=== PATIENT | female | born 1930 | race Caucasian/White ===

== ENCOUNTER → 2016-10-23 | Outpatient (CLI) | payer OTHER ==
[2016-10-23 12:23] LABS: BASO % 0.8 %; BASO ABS # 0.04 K/uL (0-0.2); COMPLETE YES; EOS % 1.6 %; HEMATOCRIT 38.8 % (37-47); IG% 0.2 %; LYMPH % 25.3 %; LYMPH ABS # 1.29 K/uL (1.2-3.4); MEAN CELL VOLUME 91.1 fL (80-100); MEAN CORPUSCULAR HEMOGLOBIN 30.3 pg (25-34); MEAN CORPUSCULAR HGB CONC 33.2 g/dl (32-36); MEAN PLATELET VOLUME 10.3 fL (7.4-10.4); MONO % 7.9 %; NEUT % 64.2 %; PLATELET COUNT 387 K/uL (130-400); RED BLOOD COUNT 4.26 M/uL (4.2-5.4); WHITE BLOOD COUNT 5.09 K/uL (4.8-10.8)
[2016-10-23 12:35] LABS: ALT/SGPT 32 U/L (12-78); AST/SGOT 21 U/L (15-37); BLOOD UREA NITROGEN 11 mg/dl (7-18); BUN/CREATININE RATIO 13.2 (10-20); CALCIUM 8.8 mg/dl (8.5-10.1); CARBON DIOXIDE 27 mmol/L (21-32); CHLORIDE 100 mmol/L (98-107); CREATININE 0.84 mg/dl (0.60-1.20); GLUCOSE 163 mg/dl (70-99); SODIUM 137 mmol/L (136-145)
[2016-10-23 12:46] LABS: ALB/GLOB RATIO 1.2 (0.9-2); ALKALINE PHOSPHATASE 75 U/L (45-117); CHOLESTEROL 161 mg/dl (0-200); CHOLESTEROL/HDL RATIO 2.6; HDL CHOLESTEROL 63 mg/dl; LDL CHOLESTEROL CALCULATED 80 mg/dl; TRIGLYCERIDES 92 mg/dl (0-150); VERY LOW DENSITY LIPOPROT CALC 18 mg/dl
[2016-10-23 12:58] LABS: ESTIMATED AVERAGE GLUCOSE 151 mg/dl; HA1C FLAG Normal (Normal)
[2016-10-23 13:00] LABS: RATIO 10.7 mcg/mg (0-30.0)
== END | disposition home or self-care (01) ==
LOC: C.LABBFT 07:35
PROVIDERS: ATTEND Internal Medicine
DX: I10 Essential (primary) hypertension (principal); E78.00 Pure hypercholesterolemia, unspecified; E11.9 Type 2 diabetes mellitus without complications; M81.0 Age-related osteoporosis without current pathological fracture; D64.9 Anemia, unspecified

== ENCOUNTER → 2017-05-29 | Outpatient (CLI) | payer OTHER ==
[2017-05-29 12:21] LABS: MEAN CELL VOLUME 92.4 fL (80-100); MEAN CORPUSCULAR HEMOGLOBIN 29.6 pg (25-34); MEAN PLATELET VOLUME 10.3 fL (7.4-10.4); PLATELET COUNT 398 K/uL (130-400); RED BLOOD COUNT 4.33 M/uL (4.2-5.4); WHITE BLOOD COUNT 5.23 K/uL (4.8-10.8)
[2017-05-29 12:33] LABS: ALT/SGPT 30 U/L (12-78); AST/SGOT 18 U/L (15-37); BLOOD UREA NITROGEN 11 mg/dl (7-18); BUN/CREATININE RATIO 15.3 (10-20); CALCIUM 9.2 mg/dl (8.5-10.1); CARBON DIOXIDE 29 mmol/L (21-32); CHLORIDE 102 mmol/L (98-107); CREATININE 0.74 mg/dl (0.60-1.20); GLUCOSE 180 mg/dl (70-99); SODIUM 137 mmol/L (136-145)
[2017-05-29 12:44] LABS: ALB/GLOB RATIO 1.1 (0.9-2); ALKALINE PHOSPHATASE 64 U/L (45-117); CHOLESTEROL 233 mg/dl (0-200); CHOLESTEROL/HDL RATIO 3.9; HDL CHOLESTEROL 59 mg/dl; LDL CHOLESTEROL CALCULATED 146 mg/dl; TRIGLYCERIDES 140 mg/dl (0-150); VERY LOW DENSITY LIPOPROT CALC 28 mg/dl
[2017-05-29 12:53] LABS: ESTIMATED AVERAGE GLUCOSE 157 mg/dl; HA1C FLAG Normal (Normal)
== END | disposition home or self-care (01) ==
LOC: C.LABBFT 07:59
PROVIDERS: ATTEND Internal Medicine
DX: E11.9 Type 2 diabetes mellitus without complications (principal)

== ENCOUNTER → 2017-12-17 | Outpatient (CLI) | payer OTHER ==
[2017-12-17 12:41] LABS: HEMATOCRIT 32.7 % (37-47); HEMOGLOBIN 10.3 g/dL (12.0-16.0); MEAN CELL VOLUME 84.5 fL (80-100); MEAN CORPUSCULAR HEMOGLOBIN 26.6 pg (25-34); MEAN CORPUSCULAR HGB CONC 31.5 g/dl (32-36); MEAN PLATELET VOLUME 9.9 fL (7.4-10.4); PLATELET COUNT 434 K/uL (130-400); RED CELL DISTRIBUTION WIDTH CV 13.9 % (11.5-14.5); RED CELL DISTRIBUTION WIDTH SD 42.6 fL (36.4-46.3); WHITE BLOOD COUNT 7.25 K/uL (4.8-10.8)
[2017-12-17 12:42] LABS: HEMOGLOBIN A1C 8.4 % (4.5-5.6)
[2017-12-17 14:54] LABS: ALBUMIN 3.9 gm/dl (3.4-5.0); ALT/SGPT 25 U/L (12-78); AST/SGOT 21 U/L (15-37); BLOOD UREA NITROGEN 20 mg/dl (7-18); CALCIUM 9.1 mg/dl (8.5-10.1); CARBON DIOXIDE 25 mmol/L (21-32); CREATININE 0.92 mg/dl (0.60-1.20); GLUCOSE 225 mg/dl (70-99); POTASSIUM 3.9 mmol/L (3.5-5.1); SODIUM 135 mmol/L (136-145)
[2017-12-17 15:04] LABS: ALKALINE PHOSPHATASE 62 U/L (45-117); CHOLESTEROL 174 mg/dl (0-200); LDL CHOLESTEROL CALCULATED 83 mg/dl; TOTAL PROTEIN 7.5 gm/dl (6.4-8.2)
== END | disposition home or self-care (01) ==
LOC: C.LABBFT 07:44
PROVIDERS: ATTEND Internal Medicine
DX: E11.9 Type 2 diabetes mellitus without complications (principal)

== ENCOUNTER 2018-12-04 07:37 | Observation (INO) ==
--- NOTE | 2018-12-04 08:12 | Emergency Department Note ---
History of Present Illness General Chief complaint: Hip Pain Time Seen by Provider: 12/04/18 07:40 History of Present Illness Maximum Pain Intensity: 5 Patient is an 88-year-old female with past medical history significant for diabetes, hypertension and dyslipidemia who was brought to the emergency department by S ambulance for evaluation after she fell at home this morning. Incident occurred about an hour ago. History is obtained from EMS, who spoke with the patient's housemate, as well as the patient and her daughter. Patient tells me, that she believes that she slid off the couch while seated on it in the living room. She was helped up by her housemate. EMS report that she fell while walking down the hallway into the kitchen about an hour ago. It is unclear whether she struck her head, but there was no apparent loss of consciousness. Patient complains of some left hip pain, but then admits that this chronic in nature. Patient complained of some discomfort in the top of her head initially, then denied this. She denies any chest pain, palpitations, shortness of breath, abdominal pain, nausea, vomiting, urinary symptoms or stool changes. She does not believe that she took her morning medications nor had breakfast this morning. The patient's daughter presented to the emergency department, and reported that the housemate told her that the patient had fallen in the hallway. Patient's daughter does admit that there does appear to be some baseline forgetfulness/dementia, and she might be a little "worse this morning" than normal. Home Medications Home Medications Medication Instructions Recorded Confirmed Type glipizide 10 mg PO DAILY 12/04/18 12/04/18 History lisinopril-hydrochlorothiazide 1 tab PO DAILY 12/04/18 12/04/18 History metformin 850 mg PO BID 12/04/18 12/04/18 History simvastatin 80 mg PO DAILY 12/04/18 12/04/18 History Allergies Allergy/AdvReac Type Severity Reaction Status Date / Time chocolate flavor Allergy HEARING Verified 12/04/18 11:03 PROBLEMS Past Med/Surg History Medical History Dyslipidemia (Chronic) Hypertension (Chronic) Diabetes (Chronic) Social History Feels Safe at Home: Yes Smoking Status: Former smoker Review of Systems A total of 10 systems reviewed and were otherwise negative Physical Exam Vital Signs Vital Signs - 24 hr 12/04/18 07:43 12/04/18 08:59 12/04/18 09:59 Temperature 36.8 C Temperature Source Oral Sepsis Recent Fever Within 48 Hours No Sepsis New/Unexplained Change in Mental Status No Sepsis Action Taken by Nursing No Action Required Pulse Rate - Lying Pulse Rate [Left Finger] 98 H 100 H 104 H Respiratory Rate 18 18 18 Respiratory Effort / Characteristics Non-Labored Spontaneous Non-Labored Spontaneous Non-Labored Spontaneous Respiratory Depth Normal Normal Normal Respiratory Pattern Regular Regular Regular Blood Pressure - Lying Blood Pressure [Left Arm] 186/107 H 179/102 H 150/101 H Blood Pressure Mean [Left Arm] 133 127 117 Blood Pressure Position [Left Arm] Lying Lying Lying Pulse Oximetry 97 91 94 Oxygen Delivery Method Room Air Room Air Room Air 12/04/18 11:24 12/04/18 13:21 12/04/18 13:34 Temperature Temperature Source Sepsis Recent Fever Within 48 Hours Sepsis New/Unexplained Change in Mental Status Sepsis Action Taken by Nursing Pulse Rate - Lying 90 Pulse Rate [Left Finger] 94 H 107 H Respiratory Rate 19 23 Respiratory Effort / Characteristics Respiratory Depth Respiratory Pattern Blood Pressure - Lying 164/86 H Blood Pressure [Left Arm] 169/92 H 155/108 H Blood Pressure Mean [Left Arm] 117 123 Blood Pressure Position [Left Arm] Pulse Oximetry 94 95 93 Oxygen Delivery Method Room Air Room Air 12/04/18 15:18 Temperature Temperature Source Sepsis Recent Fever Within 48 Hours Sepsis New/Unexplained Change in Mental Status Sepsis Action Taken by Nursing Pulse Rate - Lying Pulse Rate [Left Finger] 96 H Respiratory Rate 20 Respiratory Effort / Characteristics Respiratory Depth Respiratory Pattern Blood Pressure - Lying Blood Pressure [Left Arm] 109/72 Blood Pressure Mean [Left Arm] 84 Blood Pressure Position [Left Arm] Pulse Oximetry 93 Oxygen Delivery Method Room Air GENERAL: Patient is a pleasant, well-appearing 88-year-old female who is awake alert no acute distress. HEENT: Head - normocephalic and atraumatic. Pupils are equal, round, and reactive to light. Extraocular eye muscles are intact and sclera are anicteric. Ears - bilaterally patent canals with no evidence of hemotympanum. Nose - moist nasal mucosa without evidence of trauma or discharge. Mouth - moist buccal mucosa with no trauma to the teeth or signs of malocclusion. Neck: The neck is supple and there is no pain to palpation over the posterior cervical spine and no obvious step-offs or deformities. There is no JVD or tracheal deviation. Chest: There are no signs of deformities, contusions or abrasions to the chest wall. There is no obvious crepitus or paradoxical chest rise. Heart: Regular rate and rhythm. No murmur appreciated. Lungs: Breath sounds equal and clear to auscultation without wheezes, rales, or rhonchi heard. Abdomen: Bowel sounds are present. Abdomen is soft, nontender nondistended. There is no sign of trauma such as contusions, abrasions or penetrations. There are no palpable pulsatile masses. There is no guarding, rigidity, or rebound noted. Extremities: Leg lengths are symmetrical. The patient complains of some discomfort to palpation over the left groin and left greater trochanter, but logroll is negative. She does have discomfort with hip flexion and internal and external rotation. Bilateral lower extremities are neurovascularly intact. No other obvious trauma, deformities, contusions, or edema. There are easily palpable peripheral pulses. Neuro: The patient is awake and alert and easily able to follow commands. Muscle strength is 5 out of 5 in all 4 extremities. Otherwise, neuro exam is unremarkable. Back: The entire thoracic, lumbar, and sacral spine were palpated. No discomfort over the thoracic spine and lumbar spine. There are no obvious step- offs or deformities noted. There are no obvious signs of trauma such as contusions abrasions penetrations noted to the back. Course The patient was seen and assessed as above. Old records were reviewed. History was initially unclear, due to the patient's suspected underlying dementia. I was able to speak with both her daughter and her housemate, and he confirmed that he came out into the living room earlier this morning and the patient told him that she had fallen in the hallway. She had gotten herself up and walked into the living room and sat down on the couch after she had fallen. The fall was unwitnessed. The patient is complaining of some head discomfort , and some left hip discomfort. IV lock was initiated and laboratory studies were collected. EKG was performed and was as noted below without evidence for ectopy or acute ischemic changes.. Head CT and left hip and pelvic x-rays were obtained. The patient's laboratory studies revealed a white count of 17,800 of unclear significance. H&H is normal. There are no electrolyte abnormalities noted. BUN and creatinine 12 and 0.82. Glucose was 225. Urine sample is negative for infection. Troponin x1 is negative for cardiac ischemia. Head CT was negative for acute intracranial bleed, mass or trauma. Pelvic x- rays noted minimally displaced fractures of the superior and inferior left pubic rami, possible extension of the left superior pubic ramus fracture towards the left acetabulum. Pelvic CT was recommended. Pelvic CT was performed, which again redemonstrated the non-distracted left superior and inferior pubic ring fractures. The superior pubic ring fracture extends to the anterior wall of the acetabulum. Trace intrapelvic extraperitoneal hemorrhage on the left as well as intramuscular hemorrhage noted in the left obturator and left abductor musculature. Patient had some increased discomfort after her diagnostic imaging studies and was medicated with Zofran 4 mg and morphine 2 mg IV. All laboratory and diagnostic imaging studies were reviewed with attending physician who also independently evaluated the patient. The patient and her daughter were made aware of the results of her ED workup. The patient did note some increased left hip pain. She was given Toradol 10 mg IV. I did speak with Yury Williamson PA-C, with [facility]. He discussed the patient with Dr. Betancourt. Patient's fractures are nonsurgical, and they recommended a partial weightbearing gait with a walker, and follow-up in the office in 2 weeks. Pain management as needed. This information was related to the patient's family. Patient was reviewed with the emergency department case management, Kamila Shane, to help facilitate SNF/ Rehab placement. The patient was ordered a meal tray. Physical and Occupational Therapy consults were ordered. Referral was made to [facility]. Please refer to criminal intelligence analyst notes for further information. Unfortunately, we were unable to obtain insurance authorization. Admission/ observation at our facility pending insurance authorization for significant was discussed with the patient and her daughter and they were in agreement. I did speak with Dr. Tay with [facility], they will see the patient. Administered Medications Discontinued Medications Ketorolac Tromethamine (Toradol) 10 mg PO NOW STA Stop: 12/04/18 11:29 Last Admin: 12/04/18 11:39 Dose: 10 mg Morphine Sulfate (Morphine Sulfate) 2 mg IV NOW STA Stop: 12/04/18 09:44 Last Admin: 12/04/18 09:59 Dose: 2 mg Ondansetron HCl (Zofran) 4 mg IV NOW STA Stop: 12/04/18 09:44 Last Admin: 12/04/18 09:59 Dose: 4 mg Medical Decision Making Differential Diagnosis Differential diagnoses entertained included hip versus femur fracture/ dislocation, pelvic fracture, lumbar spine injury, rib fracture, mechanical fall , acute coronary syndrome, orthostasis, dehydration, electrolyte abnormalities, anemia, hypoglycemia, syncope, seizure, arrhythmia, among others. Medical Records Attestation: I reviewed the patient's medical records. Home Medications Current Medication List: was personally reviewed by me Laboratory Data Attestation: I reviewed the patient's lab results. Result diagrams: 12/04/18 08:35 12/04/18 08:35 Lab Results 12/04/18 12/04/18 12/04/18 Range/Units 08:35 08:35 08:35 WBC 17.87 H (4.8-10.8) K/uL RBC 4.16 L (4.2-5.4) M/uL Hgb 13.0 (12.0-16.0) g/dL Hct 38.6 (37-47) % MCV 92.8 (80-100) fL MCH 31.3 (25-34) pg MCHC 33.7 (32-36) g/dL RDW Std Deviation 41.6 (36.4-46.3) fL RDW Coeff of Elizabeth 12.3 (11.5-14.5) % Plt Count 291 (130-400) K/uL MPV 9.9 (7.4-10.4) fL Sodium 137 (136-145) mmol/L Potassium 3.5 (3.5-5.1) mmol/L Chloride 102 (98-107) mmol/L Carbon Dioxide 28 (21-32) mmol/L Anion Gap 7.0 (3-11) BUN 21 H (7-18) mg/dl Creatinine 0.82 (0.6-1.2) mg/dl Est Cr Clr Drug Dosing 40.0 ml/min Est GFR ( Amer) 74.6 Est GFR (Non-Af Amer) 64.3 BUN/Creatinine Ratio 24.9 H (10-20) Glucose 225 H (70-99) mg/dl Calcium 8.9 (8.5-10.1) mg/dl Troponin I < 0.015 (0-0.045) ng/ml Urine Color Urine Appearance (Clear) Urine pH (4.5-7.5) Ur Specific [place] (1.000-1.030) Urine Protein (Negative) Urine Glucose (UA) (Negative) Urine Ketones (Negative) Urine Blood (Negative) Urine Nitrite (Negative) Urine Bilirubin (Negative) Urine Urobilinogen (Negative) Ur Leukocyte Esterase (Negative) 12/04/18 Range/Units 09:50 WBC (4.8-10.8) K/uL RBC (4.2-5.4) M/uL Hgb (12.0-16.0) g/dL Hct (37-47) % MCV (80-100) fL MCH (25-34) pg MCHC (32-36) g/dL RDW Std Deviation (36.4-46.3) fL RDW Coeff of Elizabeth (11.5-14.5) % Plt Count (130-400) K/uL MPV (7.4-10.4) fL Sodium (136-145) mmol/L Potassium (3.5-5.1) mmol/L Chloride (98-107) mmol/L Carbon Dioxide (21-32) mmol/L Anion Gap (3-11) BUN (7-18) mg/dl Creatinine (0.6-1.2) mg/dl Est Cr Clr Drug Dosing ml/min Est GFR ( Amer) Est GFR (Non-Af Amer) BUN/Creatinine Ratio (10-20) Glucose (70-99) mg/dl Calcium (8.5-10.1) mg/dl Troponin I (0-0.045) ng/ml Urine Color Yellow Urine Appearance Clear (Clear) Urine pH 7.0 (4.5-7.5) Ur Specific [place] 1.017 (1.000-1.030) Urine Protein Negative (Negative) Urine Glucose (UA) 1+ H (Negative) Urine Ketones 1+ H (Negative) Urine Blood Negative (Negative) Urine Nitrite Negative (Negative) Urine Bilirubin Negative (Negative) Urine Urobilinogen Negative (Negative) Ur Leukocyte Esterase Negative (Negative) Imaging Data Attestation: I personally reviewed and interpreted this imaging study as follows : Radiologist's Impression: CT head/brain wo con CLINICAL HISTORY: 88 years-old Female with FALL, EVAL TRAUMA. Acute posttraumatic head injury TECHNIQUE: Multiple axial CT images of the head were obtained without contrast. A dose lowering technique was utilized adhering to the principles of ALARA. CT DOSE: 537.48 mGy.cm COMPARISON: None. FINDINGS: No acute intracranial hemorrhage, midline shift, intracranial mass, hydrocephalus, territorial ischemia or abnormal extra-axial collection. Age- related involutional changes with mild ex vacuo ventriculomegaly. Mild degree of ill-defined white matter hypodensities are suggestive of chronic microvascular ischemic changes senescent calcifications of the lentiform nuclei. 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 The calvarium is intact. Prior bilateral cataract repair. Soft tissues are unremarkable. The paranasal sinuses, mastoid air cells, and middle ear cavities are clear. IMPRESSION: No acute intracranial abnormality or calvarial fracture. XR hip LT 2-3V w pelvis CLINICAL HISTORY: 88 years-old Female presenting with LEFT HIP PAIN, fall a few days ago. TECHNIQUE: Single frontal view of the pelvis and frontal and frog-leg lateral views of the left hip were obtained. COMPARISON: None. FINDINGS: Minimally displaced fractures of the superior and inferior left pubic rami. The superior left pubic ramus fracture extends toward the acetabulum. Left femoral neck intact. Sacral iliac joints, pubic symphysis, and hip joints congruent. Underlying osteopenia suggested. Arcuate lines of the sacrum grossly intact. Bony pelvis otherwise intact. Grossly intact right femoral neck. No advanced degenerative change. Nonobstructive bowel gas pattern. IMPRESSION: Minimally displaced fractures of the superior and inferior left pubic rami. Apparent extension of the left superior pubic ramus fracture towards left acetabulum; left acetabular fracture not excluded though considered less likely. Consider pelvic CT for further evaluation. CT SCAN OF THE PELVIS WITHOUT IV CONTRAST CLINICAL HISTORY: Pelvic fractures. COMPARISON STUDY: Pelvic x-ray dated 12/04/2018. TECHNIQUE: CT scan of the bony pelvis is performed from the pelvic inlet to the proximal femora. Images are reviewed in the axial, sagittal, and coronal planes. IV contrast was not administered for this examination. A dose lowering technique was utilized adhering to the principles of ALARA. CT DOSE: 636.67 mGy.cm FINDINGS: The skeletal structures are osteopenic. There are acute nondistracted fractures of the left superior and inferior pubic ring. Fracture extends through the anterior wall of the left acetabulum. No additional fracture is identified. The proximal femora are intact with no evidence of osteonecrosis. No lytic or blastic lesion is seen. 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 Intramuscular hemorrhage is noted within the left obturator internus muscle as well as left adductor muscles. There is trace intrapelvic extraperitoneal hemorrhage on the left. The bladder is decompressed and grossly unremarkable. The uterus and adnexa are normal as visualized. There is no pelvic sidewall or inguinal lymphadenopathy. The imaged bowel loops are normal in caliber. A normal appendix is identified. No free fluid is seen in the cul-de-sac. There is calcification of the origin of the hamstrings tendons. IMPRESSION: 1. There are nondistracted left superior and inferior pubic ring fractures. 2. The superior pubic ring fracture extends to the anterior wall of the left acetabulum. 3. No additional fracture is seen. 4. Intramuscular hemorrhage is noted within the left obturator internus and left adductor musculature. 5. There is trace intrapelvic extraperitoneal hemorrhage on the left. 6. Additional findings as above. ECG Data Attestation: I personally reviewed and interpreted this ECG as follows: Indication: other (fall/trauma) Rate (beats per minute): 99 Rhythm: normal sinus Findings: no acute ischemic change and no ectopy Comparison ECG Date: no prior available Blood Pressure Blood Pressure Findings: Elevated blood pressure Blood Pressure Disposition: elevated BP felt to be situational MDM Narrative See ED Course. Impression & Plan Fracture of left pelvis, Ambulatory dysfunction Discharge Plan Visit Data Chief Complaint: Hip Pain ED Provider: Ivan Boles ED Midlevel Provider: John Peterson Discharge Problem: Fracture of left pelvis, Ambulatory dysfunction Patient Disposition: Being Evaluated by Hospitalist Forms Stand Alone Forms: My [facility] Prescriptions Prescriptions: No Action lisinopril-hydrochlorothiazide 20-12.5 mg tablet 1 tab PO DAILY RF: 0 glipizide 10 mg tablet 10 mg PO DAILY RF: 0 metformin 850 mg tablet 850 mg PO BID RF: 0 simvastatin 80 mg tablet 80 mg PO DAILY RF: 0 Referrals Referrals: Yasir Vo III, MD [Primary Care Provider] - Leon Betancourt MD [Surgeon] -
[2018-12-04 08:51] LABS: Hematocrit (blood only) 38.6 % (37-47); Mean Corpuscular Hgb Conc 33.7 g/dL (32-36); Mean Corpuscular Volume 92.8 fL (80-100); Mean Platelet Volume 9.9 fL (7.4-10.4); Platelet Count 291 K/uL (130-400); RDW Coefficient of Variation 12.3 % (11.5-14.5); RDW Standard Deviation 41.6 fL (36.4-46.3); Red Blood Count 4.16 M/uL (4.2-5.4); White Blood Count 17.87 K/uL (4.8-10.8)
--- NOTE | 2018-12-04 08:57 | CT Scan Report ---
CT head/brain wo con CLINICAL HISTORY: 88 years-old Female with FALL, EVAL TRAUMA. Acute posttraumatic head injury TECHNIQUE: Multiple axial CT images of the head were obtained without contrast. A dose lowering tech nique was utilized adhering to the principles of ALARA. CT DOSE: 537.48 mGy.cm COMPARISON: None. FINDINGS: No acute intracranial hemorrhage, midline shift, intracranial mass, hydrocephalus, territorial ischem ia or abnormal extra-axial collection. Age-related involutional changes with mild ex vacuo ventriculo megaly. Mild degree of ill-defined white matter hypodensities are suggestive of chronic microvascular ischemic changes senescent calcifications of the lentiform nuclei. Remote appearing lacunar infarcti on of the left lentiform nucleus. The calvarium is intact. Prior bilateral cataract repair. Soft tissues are unremarkable. The paranasa l sinuses, mastoid air cells, and middle ear cavities are clear. IMPRESSION: No acute intracranial abnormality or calvarial fracture. The above report was generated using voice recognition software. It may contain grammatical, syntax o r spelling errors. Electronically signed by: Clyde Valenzuela M.D. 12/04/2018 8:55 AM
[2018-12-04 08:58] LABS: BUN Creatinine Ratio 24.9 (10-20); Calcium 8.9 mg/dl (8.5-10.1); Est GFR (African American) 74.6; Est GFR (Non-African American) 64.3; Potassium 3.5 mmol/L (3.5-5.1)
--- NOTE | 2018-12-04 09:26 | XRay Report ---
XR hip LT 2-3V w pelvis CLINICAL HISTORY: 88 years-old Female presenting with LEFT HIP PAIN, fall a few days ago. TECHNIQUE: Single frontal view of the pelvis and frontal and frog-leg lateral views of the left hip w ere obtained. COMPARISON: None. FINDINGS: Minimally displaced fractures of the superior and inferior left pubic rami. The superior left pubic r amus fracture extends toward the acetabulum. Left femoral neck intact. Sacral iliac joints, pubic sym physis, and hip joints congruent. Underlying osteopenia suggested. Arcuate lines of the sacrum grossl y intact. Bony pelvis otherwise intact. Grossly intact right femoral neck. No advanced degenerative c hange. Nonobstructive bowel gas pattern. IMPRESSION: Minimally displaced fractures of the superior and inferior left pubic rami. Apparent extension of the left superior pubic ramus fracture towards left acetabulum; left acetabular fracture not excluded th ough considered less likely. Consider pelvic CT for further evaluation. Electronically signed by: Adiel Lopez M.D. 12/04/2018 9:25 AM
--- NOTE | 2018-12-04 09:39 | Emergency Department Note ---
ED Visit Note I have seen and examined this patient with Tulio Greenberg and generally agree with the treatment plan as discussed. .
[2018-12-04] MEDS ORDERED: ONDANSETRON INJ 2 MG/ML 2 ML VIAL IV STA (09:43)
[2018-12-04] MEDS ORDERED: MoRPHine SULFATE 2 MG/ML CARP IV STA (09:43)
[2018-12-04 10:30] LABS: Appearance Urine Clear (Clear); Bilirubin Urine Negative (Negative); Blood Urine Negative (Negative); Color Urine Yellow; Glucose Urine UA 1+ (Negative); Ketones Urine 1+ (Negative); Leukocyte Esterase Urine Negative (Negative); Nitrite Urine Negative (Negative); Protein Urine Negative (Negative); Specific Gravity Urine 1.017 (1.000-1.030); Urobilinogen Urine Negative (Negative)
--- NOTE | 2018-12-04 10:34 | CT Scan Report ---
CT SCAN OF THE PELVIS WITHOUT IV CONTRAST CLINICAL HISTORY: Pelvic fractures. COMPARISON STUDY: Pelvic x-ray dated 12/04/2018. TECHNIQUE: CT scan of the bony pelvis is performed from the pelvic inlet to the proximal femora. Christiana ges are reviewed in the axial, sagittal, and coronal planes. IV contrast was not administered for thi s examination. A dose lowering technique was utilized adhering to the principles of ALARA. CT DOSE: 636.67 mGy.cm FINDINGS: The skeletal structures are osteopenic. There are acute nondistracted fractures of the left superior and inferior pubic ring. Fracture extends through the anterior wall of the left acetabulum. No additional fracture is identified. The proximal femora are intact with no evidence of osteonecros is. No lytic or blastic lesion is seen. There are bilateral pars defects at L5 with 10 mm of anteroli sthesis at L5-S1. Intramuscular hemorrhage is noted within the left obturator internus muscle as well as left adductor muscles. There is trace intrapelvic extraperitoneal hemorrhage on the left. The lan dder is decompressed and grossly unremarkable. The uterus and adnexa are normal as visualized. There is no pelvic sidewall or inguinal lymphadenopathy. The imaged bowel loops are normal in caliber. A no rmal appendix is identified. No free fluid is seen in the cul-de-sac. There is calcification of the o rigin of the hamstrings tendons. IMPRESSION: 1. There are nondistracted left superior and inferior pubic ring fractures. 2. The superior pubic ring fracture extends to the anterior wall of the left acetabulum. 3. No additional fracture is seen. 4. Intramuscular hemorrhage is noted within the left obturator internus and left adductor musculature . 5. There is trace intrapelvic extraperitoneal hemorrhage on the left. 6. Additional findings as above. Electronically signed by: Etienne Pimentel M.D. 12/04/2018 10:32 AM
[2018-12-04] MEDS ORDERED: KETOROLAC TROMETHAMINE 10 MG TABLET PO STA (11:28)
--- NOTE | 2018-12-04 17:25 | History & Physical Report ---
Date of Service December 04, 2018 Assessment & Plan (1) Fracture of left pelvis: left superior and inferior ramus fracture, non displaced non surgical per orthopedics recommend partial weight bearing with rolling walker, rehab follow up with Dr. Betancourt in 2 weeks Toradol and Ultram ordered for pain controle PT/OT ordered should be able to go to [facility] tomorrow pending insurance authorization (2) Hypertension: BP low normal currently continue Lisinopril HCTZ tomorrow AM with hold parameters (3) Diabetes: hold Metformin and Glipizide while inpatient Novolog diabetic diet monitor for hypoglycemia (4) Dyslipidemia: continue Zocor (5) DVT prophylaxis: Heparin SC History of Present Illness Chief Complaint: I fell Primary Care Provider: Yasir Vo MD 88 yo female with history of DM and HTN, presents to the ED after falling in her hallway at home. She only fell once and she experienced pain in her left hip. She denied striking her head and there was no loss of consciousness. She was not able to walk due to the pain in her hip so she was brought to the ED. She had been in her usual state of good health prior to the fall. She has some mild memory loss but overall she is independent, lives with a housemate and daughter checks on her. No recent infections. She has been eating and drinking well. Takes her medications as prescribed. In the ED her labs showed WBC of 17k but Hb normal. Cr stable at 0.8 and BUN 21. Glucose was 225. CT pelvis showed non-displaced inferior and superior pubic ramus fractures. The case was discussed with orthopedics and they said that this was non-surgical , recommended ambulating with walker with partial weight bearing, follow up in [address] patient at [facility] but no decision given by insurance so will now observe patient over night. Allergies Allergy/AdvReac Type Severity Reaction Status Date / Time chocolate flavor Allergy HEARING Verified 12/04/18 11:03 PROBLEMS Home Medications Home Medications Medication Instructions Recorded Confirmed Type glipizide 10 mg PO DAILY 12/04/18 12/04/18 History lisinopril-hydrochlorothiazide 1 tab PO DAILY 12/04/18 12/04/18 History metformin 850 mg PO BID 12/04/18 12/04/18 History simvastatin 80 mg PO DAILY 12/04/18 12/04/18 History Past Med/Surg History Medical History Dyslipidemia (Chronic) Hypertension (Chronic) Diabetes (Chronic) No significant past surgical history Family History Other No significant family history Social History Feels Safe at Home: Yes Smoking Status: Former smoker Review of Systems All systems reviewed & are unremarkable except as noted in HPI & below Musculoskeletal: + joint pain (left hip hurts with movement) Neurologic: + confusion (intermittently) Physical Exam 2 Vital Signs (Past 24 Hours): Last Vital Signs Temp 36.8 C 12/04/18 07:43 Pulse 95 H 12/04/18 15:20 Resp 20 12/04/18 15:18 BP 90/57 L 12/04/18 17:01 Pulse Ox 87 L 12/04/18 17:01 Constitutional: WD/WN, vitals as above + thin Eyes: PERRL, conjunctivae normal, anicteric sclerae ENMT: external ear and nose normal, oropharynx normal Neck: trachea midline, no thyromegaly Respiratory: normal respiratory effort, lungs clear to auscultation Cardiovascular: RRR, no murmur, no edema Gastrointestinal (Abdomen): normal bowel sounds, soft, nontender, no hepatosplenomegaly Musculoskeletal: no cyanosis or clubbing, extremities motor strength 5/5 Extremities: extremities normal to inspection and + limited ROM of extremities ( pain with movement of left hip) Skin: no rashes, warm and dry Neurologic: patellar DTR's 2+ bilat, sensation intact and PERRL, EOMI, accommodation nl, no face palsy, no dysarthria Psychiatric: A+Ox3, euthymic affect Lymphatic: no cervical or axillary lymphadenopathy Results & Data Laboratory Results Laboratory Results - last 24 hr 12/04/18 12/04/18 12/04/18 08:35 08:35 08:35 WBC 17.87 H RBC 4.16 L Hgb 13.0 Hct 38.6 MCV 92.8 MCH 31.3 MCHC 33.7 RDW Std Deviation 41.6 RDW Coeff of Elizabeth 12.3 Plt Count 291 MPV 9.9 Sodium 137 Potassium 3.5 Chloride 102 Carbon Dioxide 28 Anion Gap 7.0 BUN 21 H Creatinine 0.82 Est Cr Clr Drug Dosing 40.0 Est GFR ( Amer) 74.6 Est GFR (Non-Af Amer) 64.3 BUN/Creatinine Ratio 24.9 H Glucose 225 H Calcium 8.9 Troponin I < 0.015 Urine Color Urine Appearance Urine pH Ur Specific [place] Urine Protein Urine Glucose (UA) Urine Ketones Urine Blood Urine Nitrite Urine Bilirubin Urine Urobilinogen Ur Leukocyte Esterase 12/04/18 09:50 WBC RBC Hgb Hct MCV MCH MCHC RDW Std Deviation RDW Coeff of Elizabeth Plt Count MPV Sodium Potassium Chloride Carbon Dioxide Anion Gap BUN Creatinine Est Cr Clr Drug Dosing Est GFR ( Amer) Est GFR (Non-Af Amer) BUN/Creatinine Ratio Glucose Calcium Troponin I Urine Color Yellow Urine Appearance Clear Urine pH 7.0 Ur Specific [place] 1.017 Urine Protein Negative Urine Glucose (UA) 1+ H Urine Ketones 1+ H Urine Blood Negative Urine Nitrite Negative Urine Bilirubin Negative Urine Urobilinogen Negative Ur Leukocyte Esterase Negative Diagnostic Findings CT SCAN OF THE PELVIS WITHOUT IV CONTRAST CLINICAL HISTORY: Pelvic fractures. COMPARISON STUDY: Pelvic x-ray dated 12/04/2018. TECHNIQUE: CT scan of the bony pelvis is performed from the pelvic inlet to the proximal femora. Images are reviewed in the axial, sagittal, and coronal planes. IV contrast was not administered for this examination. A dose lowering technique was utilized adhering to the principles of ALARA. CT DOSE: 636.67 mGy.cm FINDINGS: The skeletal structures are osteopenic. There are acute nondistracted fractures of the left superior and inferior pubic ring. Fracture extends through the anterior wall of the left acetabulum. No additional fracture is identified. The proximal femora are intact with no evidence of osteonecrosis. No lytic or blastic lesion is seen. 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 Intramuscular hemorrhage is noted within the left obturator internus muscle as well as left adductor muscles. There is trace intrapelvic extraperitoneal hemorrhage on the left. The bladder is decompressed and grossly unremarkable. The uterus and adnexa are normal as visualized. There is no pelvic sidewall or inguinal lymphadenopathy. The imaged bowel loops are normal in caliber. A normal appendix is identified. No free fluid is seen in the cul-de-sac. There is calcification of the origin of the hamstrings tendons. IMPRESSION: 1. There are nondistracted left superior and inferior pubic ring fractures. 2. The superior pubic ring fracture extends to the anterior wall of the left acetabulum. 3. No additional fracture is seen. 4. Intramuscular hemorrhage is noted within the left obturator internus and left adductor musculature. 5. There is trace intrapelvic extraperitoneal hemorrhage on the left. 6. Additional findings as above. Code Status & VTE Plan Code Status full code VTE Prophylaxis Plan VTE Prophylaxis will be ordered: Yes _ (1) Fracture of left pelvis Encounter type: initial encounter Fracture alignment: nondisplaced Fracture healing: Fracture morphology: Fracture type: closed Pelvic bone location: pubis Sublocation of acetabulum: Sublocation of pubis: Qualified Code(s): S32.502A - Unspecified fracture of left pubis, initial encounter for closed fracture
[2018-12-04] MEDS ORDERED: TRAMADOL HCL 50 MG TABLET PO PRN (18:39)
[2018-12-04] MEDS ORDERED: ONDANSETRON INJ 2 MG/ML 2 ML VIAL IV PRN (18:39)
[2018-12-04] MEDS ORDERED: KETOROLAC TROMETHAMINE 15 MG/ML VIAL IV PRN (18:39)
[2018-12-04] MEDS ORDERED: GLUCOSE 10 TABS/TUBE PO PRN (19:01)
[2018-12-04] MEDS ORDERED: DEXTROSE 50% 50 ML SYRINGE IV PRN (19:01)
[2018-12-04] MEDS ORDERED: GLUCOSE 40% GEL 15 GM TUBE PO PRN (19:01)
[2018-12-04] MEDS ORDERED: GLUCAGON FOR INJ 1 MG VIAL IM PRN (19:01)
[2018-12-04] MEDS ORDERED: CARBOHYDRATES FOR HYPOGLYCEMIA PO PRN (19:01)
[2018-12-04 19:37] LABS: INR 1.1 (0.9-1.1); Partial Thromboplastin Ratio 0.9; Partial Thromboplastin Time 24.1 Seconds (21.0-31.0); Prothrombin Time 10.9 Seconds (9.0-12.0)
[2018-12-04] MEDS: INSULIN ASPART 100 UNITS/ML 3 ML PEN SC SCH (21:24)
[2018-12-04] MEDS: HEPARIN SOD 5,000 UNIT/0.5 ML VIAL SQ SCH (21:24)
[2018-12-05] MEDS: ACETAMINOPHEN 325 MG TAB PO PRN ×3 (03:52→15:35)
[2018-12-05] MEDS: HEPARIN SOD 5,000 UNIT/0.5 ML VIAL SQ SCH ×2 (05:15→14:09)
[2018-12-05 06:33] LABS: Basophils # (auto) 0.04 K/uL (0-0.2); Basophils % (auto) 0.5 %; Eosinophils # (auto) 0.11 K/uL (0-0.5); Eosinophils % (auto) 1.5 %; Hematocrit (blood only) 36.9 % (37-47); Hemoglobin 12.4 g/dL (12.0-16.0); Immature Granulocytes # (auto) 0.02 K/uL (0.00-0.02); Immature Granulocytes % (auto) 0.3 %; Lymphocytes # (auto) 1.01 K/uL (1.2-3.4); Lymphocytes % (auto) 13.7 %; Mean Corpuscular Hgb Conc 33.6 g/dL (32-36); Mean Corpuscular Volume 93.2 fL (80-100); Mean Platelet Volume 9.8 fL (7.4-10.4); Monocytes # (auto) 0.83 K/uL (0.11-0.59); Monocytes % (auto) 11.3 %; Neutrophils # (auto) 5.36 K/uL (1.4-6.5); Neutrophils % (auto) 72.7 %; Platelet Count 242 K/uL (130-400); RDW Coefficient of Variation 12.6 % (11.5-14.5); RDW Standard Deviation 43.2 fL (36.4-46.3); Red Blood Count 3.96 M/uL (4.2-5.4); White Blood Count 7.37 K/uL (4.8-10.8)
[2018-12-05 07:05] LABS: Calcium 8.4 mg/dl (8.5-10.1); Est GFR (African American) 73.5; Est GFR (Non-African American) 63.4; Potassium 3.7 mmol/L (3.5-5.1)
[2018-12-05] MEDS ORDERED: SIMVASTATIN 80 MG TAB PO SCH (09:00)
[2018-12-05] MEDS ORDERED: LISINOPRIL/HCTZ 20/12.5MG 1 TAB TAB PO SCH (09:00)
[2018-12-05] MEDS: INSULIN ASPART 100 UNITS/ML 3 ML PEN SC SCH ×3 (09:10→16:48)
--- NOTE | 2018-12-10 05:36 | Discharge Summary ---
Date of Service date of admission - 12/04/18 date of discharge - 12/05/18 Admission HPI Per Admitting Provider 88 yo female with history of T2DM and HTN who presented to the ED after falling in her hallway at home. She only fell once and she experienced pain in her left hip. She denied striking her head and there was no loss of consciousness. She was not able to walk due to the pain in her hip so she was brought to the ED. She had been in her usual state of good health prior to the fall. She has had some mild memory loss but overall she is independent, lives with a housemate and daughter checks on her regularly. No recent infections. She has been eating and drinking well. Takes her medications as prescribed. In the ED her labs showed WBC of 17k but hemoglobin was normal. Cr stable at 0.8 and BUN 21. Glucose was 225. CT pelvis showed non-displaced inferior and superior pubic ramus fractures. The case was discussed with orthopedics and they said that this was non-surgical , recommended ambulating with walker with partial weight bearing, follow up in [address] patient at [facility] in the ER but no decision given by insurance so admitted for observation and pain control. Principal Diagnosis pelvic fractures s/p fall Discharge Exam Constitutional well developed and well nourished; no acute distress ENMT external ear and nose normal, oropharynx normal Respiratory normal respiratory effort, lungs clear to auscultation Cardiovascular RRR, no murmur, no edema Heart Sounds: normal S1 and normal S2 Vessels: posterior tibial pulses present and dorsalis pedis pulses present; no JVD Gastrointestinal (Abdomen) normal bowel sounds, soft, nontender, no hepatosplenomegaly Musculoskeletal left hip tenderness/pain (mainly groin pain) with passive flexion/extension/ rotation Psychiatric Orientation: alert, oriented to person and oriented to place Discharge Data Allergies Allergy/AdvReac Type Severity Reaction Status Date / Time chocolate flavor Allergy HEARING Verified 12/04/18 11:03 PROBLEMS Consultations PT, OT Ordered Studies 1. pelvic CT: IMPRESSION: 1. There are nondistracted left superior and inferior pubic ring fractures. 2. The superior pubic ring fracture extends to the anterior wall of the left acetabulum. 3. No additional fracture is seen. 4. Intramuscular hemorrhage is noted within the left obturator internus and left adductor musculature. 5. There is trace intrapelvic extraperitoneal hemorrhage on the left. 2. head CT: FINDINGS: No acute intracranial hemorrhage, midline shift, intracranial mass, hydrocephalus, territorial ischemia or abnormal extra-axial collection. Age- related involutional changes with mild ex vacuo ventriculomegaly. Mild degree of ill-defined white matter hypodensities are suggestive of chronic microvascular ischemic changes senescent calcifications of the lentiform nuclei. 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 The calvarium is intact. Prior bilateral cataract repair. Soft tissues are unremarkable. The paranasal sinuses, mastoid air cells, and middle ear cavities are clear. Hospital Course (1) Fracture of left pelvis: left superior and inferior ramus fractures non displaced. non surgical management per orthopedics. recommend partial weight bearing with rolling walker along with rehab. follow up with Dr. Betancourt in 2 weeks post-discharge at [facility]. Ultram prn pain. Recommend DEXA scan as outpatient to exclude osteoporosis. Vitamin D level also recommended. (2) Hypertension: Controlled during the stay. She will continue her usual home medications. Orthostatic BPs were negative while hospitalized. (3) Diabetes: She will resume Metformin and Glipizide at discharge. (4) Dyslipidemia: continue Zocor (5) Memory loss: Recommend outpatient neurology referral for consideration of memory testing and dementia/MCI work-up. (6) Chronic kidney disease, stage 3a: creatine at discharge was 0.8. (7) Leukocytosis: Likely stress reaction to her fall and the fractures. WBC count normalized prior to discharge without intervention. Patient will transfer to [facility] for acute rehab. Total Time Total Time Spent Total Time Spent (In Minutes): 35 Total Time Includes: Examination of the Patient, Discharge Planning, Medication Reconciliation and Communication With Other Providers Discharge Plan Discharge Items Patient Disposition: Transfer [facility] Fac Reason For Visit: PUBIC RAMUS FRACTURE Discharge Diagnosis: pelvic fractures due to fall Discharge Goals: Decrease discomfort and Therapeutic intervention Activity: As commented below Weightbearing: Left partial Non-emergency contact: Primary Care Provider and Specialist Call non-emergency contact if: you have any medication questions, your symptoms worsen, your pain is not controlled, your pain is worsening and your temperature is above 100.5 Follow-up/Referrals: Tor Kirkpatrick MD [Surgeon] - (see Dr. Kirkpatrick or one of his associates within 2 weeks of hospital discharge ) Diet: Carb Consistent or DM2 Addtl Provider Instructions: From Parag Aguilar - Hospitalist - You were diagnosed with pelvic fractures. Orthopedics recommended conservative management (no surgery) of these broken bones. Pain control was advised. You will only be able to "partial weightbear" (50%) on your left leg. Orthopedics will decide in the future when you can go back to normal weight- bearing on the left leg. At this time we recommend - 1. take vitamin D supplement 2. take multivitamin 3. take tramadol every 8 hours as needed for pain 4. have a repeat BMP and 25,OH-vitamin D level checked in 5-7 days while at the long term 5. have a bone density test (DEXA scan) after you get out of rehab to check for osteoporosis 6. your family has expressed concerns about your memory --- please see any of the providers at [facility] in the next 1-2 months; they can do some additional testing to see if you are developing a dementia condition 7. check blood sugars before meals and at bedtime Follow-up: * see Dr. Kirkpatrick at [facility] in 2 weeks * see [facility] in 1-2 months * see your family doctor after you get out of rehab * see the rehab medical science liaison within 2 days Return to [facility] if - * you have uncontrolled pain * you have recurrent falls * you have fever over 100.5 degrees * any other concerns Prescriptions: New tramadol 50 mg Tablet 50 mg PO Q8H PRN (Reason: pain) Qty: 30 RF: 0 multivitamin,tx-minerals tablet 1 tab PO DAILY Qty: 90 RF: 3 cholecalciferol (vitamin D3) [Vitamin D3] 1,000 unit capsule 2,000 units PO DAILY Qty: 60 RF: 5 Continue lisinopril-hydrochlorothiazide 20-12.5 mg tablet 1 tab PO DAILY RF: 0 glipizide 10 mg tablet 10 mg PO DAILY RF: 0 metformin 850 mg tablet 850 mg PO BID RF: 0 simvastatin 80 mg tablet 80 mg PO DAILY RF: 0 Stand-Alone Forms: My [facility], Op[facility] Pain [facility] Discharge Orders: Discharge Order (Routine); Ordered 12/05/18 Ordered By: Parag Aguilar Skilled Items Patient informed of condition?: Yes DNR: No Discharge Level of Care: Skilled Communicable Disease: No Discharge Prognosis: Stable Admission Data Admit Date/Time: 12/04/18 17:23 Attending Provider: Parag Aguilar Admit Provider: Mario Tay Primary Care Provider: Yasir Vo III Other Providers: Mario Tay Service: Surgical Services Other Interventions: Discharge Summary Assessment (RN) Last Done: 12/05/18 17:29 Pending Studies at Discharge: No DC Date/Time DO NOT enter until pt leaves facility: 12/05/18 17:37
== END 2018-12-05 17:37 ==
LOC: ED 07:37 → 3W 07:37 → SUATTDRO 17:23 → 3W 17:47